=== PATIENT | male | born 1975 | race Caucasian/White ===

== ENCOUNTER 2023-01-23 20:56 | Emergency (ER) | payer OTHER, SELFPAY ==
[2023-01-23 21:32] VITALS: BP 183/101; PULSE 79; RESP 18; TEMP 36.9; O2SAT 98; BMI 35.2
--- NOTE | 2023-01-23 21:45 | DI.CT.S_ITS ---
P acute diverticulitis. ROCEDURE: CT KIDNEY URETER BLADDER (KUB) INDICATIONS: abdominal pain TECHNIQUE: Axial sections were acquired from the lung bases to the pubic symphysis. Coronal and sagittal reformats were performed. For radiation dose reduction, the following was used: automated exposure control, adjustment of mA and/or kV according to patient size. COMPARISON: [facility], CT, CT KUB, 06/13/2021, 10:34. FINDINGS: Image quality: Excellent. Lung bases: There is minimal atelectasis. Heart: Heart is normal in size. URINARY: Right Kidney and Ureter: No stones or hydronephrosis. There is a right renal cortical cyst. No hydroureter. Left Kidney and Ureter: There is a small striking stone in the distal left ureter at the ureterovesicular junction measuring up to 0.3 cm. An additional small obstructing stone in the distal ureter measuring up to 0.4 cm is also demonstrated. There is associated mild left hydroureter with mild periureteral fat stranding. There is a stone within the left renal pelvis measuring up to 1.7 cm which is likely partially obstructing. There is mild left hydronephrosis and perinephric stranding. Bladder: Normal wall thickness. No stones. ABDOMEN: Liver: Noncontrast evaluation of the liver demonstrates no discrete mass. Gallbladder: Within normal limits without calcified gallstones. Biliary ducts: No biliary ductal dilatation. Pancreas: Unremarkable. Spleen: Normal in size. Adrenal Glands: No adrenal nodules. Stomach and Bowel: Stomach, small bowel loops, and colon are normal in caliber and wall thickness. The appendix is normal. Colonic diverticulosis is present without acute diverticulitis. Peritoneum: No abnormal intraperitoneal fluid. No free air. Ventral Wall: No hernia. Abdominal Nodes: No retroperitoneal or mesenteric adenopathy by size criteria. Vessels: Aorta and inferior vena cava are normal in size. PELVIS: Pelvic Organs: Unremarkable. Pelvic Nodes: No enlarged lymph nodes. Miscellaneous: No inguinal hernias identified. Bones: Visualized osseous structures demonstrate no suspicious focal lesions. IMPRESSION: 1. Obstructing distal left ureteral stones as well as a partially obstructing large stone in the left renal pelvis with mild left hydronephrosis. 2. No evidence of appendicitis. 3. Colonic diverticulosis without Dictated by: Zeferino Pardo M.D. on 01/23/2023 at 23:21 Approved by: Zeferino Pardo M.D. on 01/23/2023 at 23:31
[2023-01-23 21:49] LABS: Bilirubin Urine UA NEGATIVE (NEGATIVE); Color Urine UA YELLOW; Glucose Urine UA NEGATIVE (Negative); Ketones Urine UA NEGATIVE (NEGATIVE); Leukocyte Esterase Urine UA NEGATIVE (NEGATIVE); Nitrite Urine UA NEGATIVE (Negative); Occult Blood Urine UA 3+ (Negative); Protein Urine UA 2+ (Negative); Specific Gravity Urine UA >=1.030 (1.000-1.035); pH Urine UA 6.5 (4.5-8.0)
[2023-01-23 21:54] LABS: Appearance Urine UA Slightly Cloudy
[2023-01-23 21:55] LABS: Amorphous Sediment Urine 2+; RBC Urine 30-100/HPF (0-5/HPF); Squamous Epithelial Cell Urine 1-5 /HPF (0-5/HPF); WBC Urine 1-5/HPF (0-5/HPF)
[2023-01-23 21:56] LABS: Bacteria Urine Few (2-10); Mucus Urine 2+ (Negative)
[2023-01-23 21:57] LABS: Culture Indicated Urine Cult Not Indicated
[2023-01-23 22:00] LABS: Add Manual Diff / Slide Review NO; Basophils Absolute Auto 100 /uL (0-100); Eosinophils Absolute Auto 300 /uL (0-450); Eosinophils Percent Auto 3.2 % (2-4); Hematocrit 39.9 % (41-53); Lymphocytes Absolute Auto 2200 /uL (1100-4500); Lymphocytes Percent Auto 25.2 % (25-40); Mean Corpuscular HGB Conc 35.2 % (30-36); Mean Corpuscular Hemoglobin 29.8 PG (26-34); Mean Corpuscular Volume 84.8 fL (80-100); Monocytes Absolute Auto 600 /uL (0-900); Monocytes Percent Auto 6.5 % (3-14); Neutrophils Absolute Auto 5600 /uL (1500-7000); Neutrophils Percent Auto 64.1 % (50-75); Platelet Count 278 X10^3/uL (150-400); Red Blood Cell Count 4.71 X10^6/uL (4.5-5.9); Red Cell Distribution Width 13.6 % (11.6-14.8); White Blood Cell Count 8.8 X10^3/uL (4.5-11.0)
[2023-01-23 22:02] LABS: Alanine Aminotransferase 21 IU/L (<50); Albumin Globulin Ratio 1.3 (1.0-2.8); Alkaline Phosphatase 77 U/L (38-126); Aspartate Aminotransferase 19 IU/L (17-59); BUN Creatinine Ratio 19.1 (6-22); Bilirubin Total 0.5 mg/dL (0.2-1.3); Blood Urea Nitrogen 18 mg/dL (9-20); Calcium 8.7 mg/dL (8.4-10.2); Carbon Dioxide 24 mmol/L (22-32); Chloride 107 mmol/L (98-107); Estimated Glomerular Filt Rate > 60 mL/min (>60); Globulin 3.2 g/dL (1.7-4.1); Glucose 120 mg/dL (70-100); HEMOLYSIS < 15 (0-50); Lipase 52 U/L (23-300); Sodium 140 mmol/L (137-145); Total Protein 7.2 g/dL (6.3-8.2)
[2023-01-23] MEDS: ONDANSETRON 4 MG/2 ML INJ IV (22:13)
[2023-01-23] MEDS: MORPHINE 4 MG/ML INJ IV (22:13)
[2023-01-23] MEDS: SODIUM CHLORIDE 0.9% 1,000 ML 1000 ML IV (22:14)
[2023-01-24] MEDS: cefTRIAXone 1,000 MG in SODIUM CHLORIDE 0.9% 100 ML 200 MG IV (01:58)
[2023-01-24] MEDS: KETOROLAC 30 MG/ML VIAL 15 MG IV (03:40)
[2023-01-24 03:50] VITALS: BP 127/69; PULSE 67; RESP 18; O2SAT 99
--- NOTE | 2023-01-24 03:54 | ED_ITS ---
HPI - Abdominal Pain General Chief Complaint: Abdominal Pain Stated Complaint: Kidney stone L side Time Seen by Provider: 01/24/23 01:41 Source: patient Mode of arrival: Ambulatory History of Present Illness HPI narrative: Patient is a 48-year-old male presenting today with sudden onset of left-sided pain off and on for about a week but got significantly more intense tonight. He felt extremely nauseous pain radiating in his left abdomen. He reports that he has a known large left renal stone. That was found in 2020 he never followed up with it. He is not really had kidney stones in the past. He denies any fever or chills. He states that he said a islam retreat was in his normal state of health until he had sudden onset of pain. He has noted some hematuria as well. Related Data Home Medications Medication Instructions Recorded Confirmed morphine 15 mg immediate release 30 mg PO Q4H PRN Pain (Scale Score 01/23/23 01/23/23 tablet 1-3) Previous Rx's Medication Instructions Recorded hydrocodone 5 mg-acetaminophen 325 1 tab PO Q6H PRN pain #10 tabs 01/24/23 mg tablet nitrofurantoin 100 mg PO Q12H 7 days #14 caps 01/24/23 monohydrate/macrocrystals 100 mg capsule (Macrobid) ondansetron 4 mg disintegrating 4 mg PO Q8H PRN nausea and 01/24/23 tablet vomiting #10 tabs Allergies Allergy/AdvReac Type Severity Reaction Status Date / Time Penicillins Allergy Verified 01/23/23 22:12 Review of Systems Review of Systems ROS Unobtainable: All systems reviewed & are unremarkable except as noted in HPI and below Patient History Social History Smoking Status: Former smoker Smoking Status: Former smoker alcohol intake frequency: other Substance Use Type: does not use Exam Initial Vital Signs Initial Vital Signs: Vital Signs Temperature 98.5 F 01/23/23 21:32 Pulse Rate 79 01/23/23 21:32 Respiratory Rate 18 01/23/23 21:32 Blood Pressure 183/101 H 01/23/23 21:32 Pulse Oximetry 98 01/23/23 21:32 Oxygen Delivery Method Room Air 01/23/23 21:32 GENERAL: Alert 48-year-old male and in no acute distress. HEENT: Head atraumatic,EOMI, pupils reactive, face symmetric, moist mucous membranes CARDIOVASCULAR: Regular rate and rhythm without murmurs, rubs or gallops. RESPIRATORY: Breath sounds equal bilaterally, no wheezes rales or rhonchi. ABDOMEN: Soft, mild left lower quadrant. Normoactive bowel sounds all 4 quadrants. No guarding or rebound. EXTREMITIES: Normal range of motion, no clubbing or edema. Neurovascularly intact NEUROLOGICAL: Alert and oriented x4. SKIN: Warm, dry, no laceration, no petechiae, no rashes or lesions. Course Orders Ordered: ED Orders 01/23/23 21:31 EKG-12 Lead Stat 01/23/23 21:35 Complete Blood Count AUTO DIFF Stat Comprehensive Metabolic Panel Stat Lipase Stat Urinalysis and Microscopic Stat 01/23/23 21:45 CT kidney ureter bladder (KUB) Stat 01/24/23 02:11 Blood Culture Stat 01/24/23 03:02 Lactate (Lactic Acid) Stat Procalcitonin Stat Discontinued Medications Hydrocodone Bitart/Acetaminophen (Hydrocodone/Acet 5/325 Prepack) 1 bottle MISC SEEINSTR ONE Stop: 01/24/23 04:24 Last Admin: 01/24/23 04:31 Dose: 1 bottle Documented By: ONUR Sodium Chloride (Normal Saline 0.9%) 1,000 mls @ 1,000 mls/hr IV BOLUS ONE Stop: 01/23/23 22:44 Last Infusion: 01/24/23 00:36 Dose: 0 mls/hr Documented By: Admin: 01/23/23 22:14 Dose: 1,000 mls/hr Documented By: SEBLE Ceftriaxone Sodium 1,000 mg/ (Sodium Chloride) 100 mls @ 200 mls/hr IV NOW ONE Stop: 01/24/23 01:42 Last Infusion: 01/24/23 03:49 Dose: 0 mls/hr Documented By: Admin: 01/24/23 01:58 Dose: 200 mls/hr Documented By: DAVIE Ketorolac Tromethamine (Ketorolac 30 Mg/Ml Vial) 15 mg IV NOW ONE Stop: 01/24/23 02:12 Last Admin: 01/24/23 03:40 Dose: 15 mg Documented By: MARIZA Morphine Sulfate (Morphine 4 Mg/Ml Inj) 4 mg IV NOW ONE Stop: 01/23/23 21:45 Last Admin: 01/23/23 22:13 Dose: 4 mg Documented By: SEBLE Morphine Sulfate (Morphine 4 Mg/Ml Inj) 4 mg IV NOW ONE Stop: 01/24/23 04:24 Last Admin: 01/24/23 04:31 Dose: 4 mg Documented By: ONUR Ondansetron HCl (Ondansetron 4 Mg Odt) 4 mg PO NOW PRN PRN Reason: Nausea And Vomiting Last Admin: 01/24/23 04:36 Dose: 4 mg Documented By: ONUR Ondansetron HCl (Ondansetron 4 Mg/2 Ml Inj) 4 mg IV NOW PRN PRN Reason: Nausea And Vomiting Last Admin: 01/23/23 22:13 Dose: 4 mg Documented By: SEBLE Vital Signs Vital signs: Vital Signs - 8 hr 01/24/23 03:50 Pulse Rate 67 Respiratory Rate 18 Blood Pressure 127/69 Pulse Oximetry 99 Oxygen Delivery Method Room Air MDM - Abdominal Pain Lab Data 01/23/23 21:35 01/23/23 21:35 Labs: Lab Results 01/23/23 01/23/23 01/23/23 Range/Units 21:35 21:35 21:35 WBC 8.8 (4.5-11.0) X10^3/uL RBC 4.71 (4.5-5.9) X10^6/uL Hgb 14.0 (13.5-17.5) g/dL Hct 39.9 L (41-53) % MCV 84.8 (80-100) fL MCH 29.8 (26-34) PG MCHC 35.2 (30-36) % RDW 13.6 (11.6-14.8) % Plt Count 278 (150-400) X10^3/uL Neut % (Auto) 64.1 (50-75) % Lymph % (Auto) 25.2 (25-40) % [place] % (Auto) 6.5 (3-14) % Eos % (Auto) 3.2 (2-4) % Baso % (Auto) 1.0 (0-2) % Neut # (Auto) 5600 (5399-6613) /uL Lymph # (Auto) 2200 (0147-7284) /uL [place] # (Auto) 600 (0-900) /uL Eos # (Auto) 300 (0-450) /uL Baso # (Auto) 100 (0-100) /uL Sodium 140 (137-145) mmol/L Potassium 4.0 (3.4-5.1) mmol/L Chloride 107 (98-107) mmol/L Carbon Dioxide 24 (22-32) mmol/L BUN 18 (9-20) mg/dL Creatinine 0.94 (0.66-1.25) mg/dL Estimated GFR > 60 (>60) mL/min BUN/Creatinine Ratio 19.1 (6-22) Glucose 120 H (70-100) mg/dL Lactate (0.7-2.1) mmol/L Calcium 8.7 (8.4-10.2) mg/dL Total Bilirubin 0.5 (0.2-1.3) mg/dL AST 19 (17-59) IU/L ALT 21 (<50) IU/L Alkaline Phosphatase 77 (38-126) U/L Total Protein 7.2 (6.3-8.2) g/dL Albumin 4.0 (3.5-5.0) g/dL Globulin 3.2 (1.7-4.1) g/dL Albumin/Globulin Ratio 1.3 (1.0-2.8) Lipase 52 (23-300) U/L Procalcitonin (<0.5) ng/mL Urine Color Yellow Urine Appearance Slightly cloudy Urine pH 6.5 (4.5-8.0) Ur Specific [place] >=1.030 H (1.000-1.035) Urine Protein 2+ H (Negative) Urine Glucose (UA) Negative (Negative) g/dL Urine Ketones Negative (NEGATIVE) Urine Occult Blood 3+ H (Negative) Urine Nitrate Negative (Negative) Urine Bilirubin Negative (NEGATIVE) Urine Urobilinogen 1.0 (0.2) E.U./dL Ur Leukocyte Esterase Negative (NEGATIVE) Urine RBC 30-100/hpf H (0-5/HPF) Urine WBC 1-5/hpf (0-5/HPF) Ur Squamous Epith Cells 1-5 /hpf (0-5/HPF) Amorphous Sediment 2+ Urine Bacteria Few (2-10) H (None) Urine Mucus 2+ H (Negative) Ur Culture Indicated? Cult not indicated 05/13/23 05/13/23 Range/Units 03:02 03:02 WBC (4.5-11.0) X10^3/uL RBC (4.5-5.9) X10^6/uL Hgb (13.5-17.5) g/dL Hct (41-53) % MCV (80-100) fL MCH (26-34) PG MCHC (30-36) % RDW (11.6-14.8) % Plt Count (150-400) X10^3/uL Neut % (Auto) (50-75) % Lymph % (Auto) (25-40) % [place] % (Auto) (3-14) % Eos % (Auto) (2-4) % Baso % (Auto) (0-2) % Neut # (Auto) (5226-2009) /uL Lymph # (Auto) (6383-7943) /uL [place] # (Auto) (0-900) /uL Eos # (Auto) (0-450) /uL Baso # (Auto) (0-100) /uL Sodium (137-145) mmol/L Potassium (3.4-5.1) mmol/L Chloride (98-107) mmol/L Carbon Dioxide (22-32) mmol/L BUN (9-20) mg/dL Creatinine (0.66-1.25) mg/dL Estimated GFR (>60) mL/min BUN/Creatinine Ratio (6-22) Glucose (70-100) mg/dL Lactate 0.8 (0.7-2.1) mmol/L Calcium (8.4-10.2) mg/dL Total Bilirubin (0.2-1.3) mg/dL AST (17-59) IU/L ALT (<50) IU/L Alkaline Phosphatase (38-126) U/L Total Protein (6.3-8.2) g/dL Albumin (3.5-5.0) g/dL Globulin (1.7-4.1) g/dL Albumin/Globulin Ratio (1.0-2.8) Lipase (23-300) U/L Procalcitonin 0.05 (<0.5) ng/mL Urine Color Urine Appearance Urine pH (4.5-8.0) Ur Specific [place] (1.000-1.035) Urine Protein (Negative) Urine Glucose (UA) (Negative) g/dL Urine Ketones (NEGATIVE) Urine Occult Blood (Negative) Urine Nitrate (Negative) Urine Bilirubin (NEGATIVE) Urine Urobilinogen (0.2) E.U./dL Ur Leukocyte Esterase (NEGATIVE) Urine RBC (0-5/HPF) Urine WBC (0-5/HPF) Ur Squamous Epith Cells (0-5/HPF) Amorphous Sediment Urine Bacteria (None) Urine Mucus (Negative) Ur Culture Indicated? Imaging Data CT scan - abdomen/pelvis: Radiologist's Impression: P acute diverticulitis.? ROCEDURE:? CT KIDNEY URETER BLADDER (KUB) ? INDICATIONS:? abdominal pain ? TECHNIQUE:? Axial sections were acquired from the lung bases to the pubic symphysis.? Coron al and sagittal reformats were performed.? For radiation dose reduction, the following was used: ?automated exposure control, adjustment of mA and/or kV according to patient size.? ? COMPARISON:? [facility], CT, CT KUB, 06/13/2021, 10:34. ? FINDINGS:? Image quality:? Excellent.? ? Lung bases:? There is minimal atelectasis.? ? Heart:? Heart is normal in size. ? URINARY: Right Kidney and Ureter: ? No stones or hydronephrosis.? There is a right renal cortical cyst.? No hydroureter.? ? Left Kidney and Ureter: ? There is a small striking stone in the distal left ureter at the ureterovesicular junction measuring up to 0.3 cm.? An additional small obstructing stone in the distal ureter measuring up to 0.4 cm is also demonstrated.? There is associated mild left hydroureter with mild periureteral fat stranding.? There is a stone within the left renal pelvis measuring up to 1.7 cm which is likely partially obstructing.? There is mild left hydronephrosis and perinephric stranding. ? Bladder:? Normal wall thickness. No stones. ? ? ? ABDOMEN: Liver:? Noncontrast evaluation of the liver demonstrates no discrete? mass. Gallbladder:? Within normal limits without calcified gallstones.? ? Biliary ducts:? No biliary ductal dilatation.? ? Pancreas:? Unremarkable.? ? Spleen:? Normal in size.? ? Adrenal Glands:? No adrenal nodules.? ? ? Stomach and Bowel:? Stomach, small bowel loops, and colon are normal in caliber and wall thickness.? The appendix is normal.? Colonic diverticulosis is present without acute diverticulitis.? Peritoneum:? No abnormal intraperitoneal fluid.? No free air.? ? Ventral Wall: ? No hernia.? Abdominal Nodes:? No retroperitoneal or mesenteric adenopathy by size criteria.? Vessels:? Aorta and inferior vena cava are normal in size.? ? PELVIS: Pelvic Organs:? Unremarkable.? ? Pelvic Nodes: No enlarged lymph nodes.? Miscellaneous: No inguinal hernias identified. ? ? ? Bones:? Visualized osseous structures demonstrate no suspicious focal lesions. IMPRESSION:? ? 1. Obstructing distal left ureteral stones as well as a partially obstructing large stone in the left renal pelvis with mild left hydronephrosis. ? 2. No evidence of appendicitis. ? 3. Colonic diverticulosis without? ? Dictated by: Zeferino Pardo M.D. on 01/23/2023 at 23:21 ? ? MDM Narrative Medical decision making narrative: Patient is a 48-year-old male who presents with sudden onset of left lower quadrant pain. He has been having some symptoms off for about a week. He has a known large left renal stone which is confirmed on CT today. Measuring 1.7 cm stone in left renal pelvis. He is also found to have a 0.3 cm stone at the UVJ junction is 0.4 cm stone at the distal ureter. He has no fever or leukocytosis no evidence of KATLYN or electrolyte abnormality. He has no sign of sepsis. But he does have bacteria in his urine without leukocytes or nitrates. I think reasonable to start him on antibiotics. No need for immediate emergent transfer or intervention. I suspect that he will pass both of his kidney stones. However the large left renal stone will need to be addressed as an outpatient. He was given IV fluids pain medication and a dose of Rocephin here. Overall feeling much better after multiple hours and waiting in the emergency department. Discharge Plan Departure Patient Disposition: Home Clinical Impression: Calculus of kidney, Acute UTI Instructions: Kidney Stones -- Adult Activity Restrictions/Additional Instructions: *You have been diagnosed with kidney stone *What to do: At this time you have a large left kidney stone which is not moving currently. You will need to address this particular stone with a urologist. You do have too much smaller stone moving in your ureter. Anticipate that you will pass these. Please stay hydrated. *Continue to take medications as directed Macrobid 100 mg twice a day for 7 days Zofran 4 mg every 8 hours if needed for nausea vomiting Motrin 600 mg every 6 hours if needed for [id number] pain Simpson 1 tablet every 6 hours if needed for severe pain *Follow up with your primary care provider in 2-3 days or call [phone] *Return to ER if you should have increasing pain persistent vomiting fever or any new, worsening or concerning symptoms CONTROLLED SUBSTANCE DISCHARGE (Narcotoic/benzodiazepine/Flexeril/Phenergan) 1. You have been prescribed narcotic medications, it does have acetaminophen/Tylenol/paracetamol in it, DO NOT TAKE MORE THAN 4,00mg in 24 hours of Tylenol. TRAMADOL DOES NOT CONTAIN TYLENOL 2. Please understand that we cannot provide further refills of narcotics, benzodiazepines or controlled substances through the ED and her pain management will need to be through your provider. 3. While on these medications you cannot drive or operate heavy machinery. 4. You cannot sign legal documents or perform any duties such as this. 5. As long as you're taking opiate pain medications he should also be taking a stool softener such as Colace, Dulcolax, MiraLAX or prune juice, to help avoid constipation. Prescriptions: New hydrocodone-acetaminophen 5-325 mg tablet 1 tab PO Q6H PRN (Reason: pain) Qty: 10 0RF ondansetron 4 mg tablet,disintegrating 4 mg PO Q8H PRN (Reason: nausea and vomiting) Qty: 10 0RF nitrofurantoin monohyd/m-cryst [Macrobid] 100 mg capsule 100 mg PO Q12H 7 Days Qty: 14 0RF Rx Instructions: must administer with a meal/food No Action morphine 15 mg Tablet 30 mg PO Q4H PRN (Reason: Pain (Scale Score 1-3)) Referrals: Ruth Valencia MD [Physician] - Tawanda Negrete MD [Physician] - Stand Alone Forms: Patient Portal/API
[2023-01-24 03:58] LABS: Procalcitonin 0.05 ng/mL (<0.5)
[2023-01-24 04:14] LABS: Lactate (Lactic Acid) 0.8 mmol/L (0.7-2.1)
[2023-01-24] MEDS: MORPHINE 4 MG/ML INJ IV (04:31)
[2023-01-24] MEDS: HYDROCODONE/ACET 5/325 PREPACK 1 BOTTLE MISC (04:31)
[2023-01-24] MEDS: ONDANSETRON 4 MG ODT PO (04:36)
== END 2023-01-24 04:43 | disposition home or self-care (01) ==
PROVIDERS: Emergency Provider Emergency Medicine
DX: N20.0 Calculus of kidney (principal); N39.0 Urinary tract infection, site not specified; R10.9 Unspecified abdominal pain
CPT/HCPCS: 36415; 74176; 80053; 81001; 83605; 83690; 84145; 85025; 87040; 93005; 96361; 96365; 96366; 96375; 96376; 99284; J0696; J1885; J2270; J2405